=== PATIENT | male | born 1960 | race African-American/Black ===

== ENCOUNTER 2017-10-30 06:58 | Inpatient (IN) | payer OTHER ==
[2017-10-23 12:43] VITALS: BMI 34.9
[2017-10-30] MEDS ORDERED: TRANEXAMIC ACID 1000 MG/10 ML VIAL IVPUSH ONE (08:26)
[2017-10-30] MEDS ORDERED: VANCOMYCIN 1 GRAM (PRE-DOCKED) 1,000 MG/250 ML BAG IVPB ONE (08:45)
[2017-10-30] MEDS ORDERED: CEFAZOLIN 2 GM/D5W 2 GM/50 ML ML IVPB ONE (08:45)
[2017-10-30] MEDS ORDERED: oxyCODONE HCL 10 MG SUSTAINED ACTING TABLET PO ONE (09:26)
[2017-10-30] MEDS ORDERED: CELECOXIB 200 MG CAPSULE PO ONE (09:26)
[2017-10-30] MEDS ORDERED: MIDAZOLAM HCL 2 MG/2 ML SINGLE DOSE VIAL ONE ×2 (10:44→14:49)
[2017-10-30] MEDS ORDERED: BUPIVACAINE HCL/PF (5 MG/ML) 30 ML VIAL IJ ONE (10:44)
[2017-10-30] MEDS ORDERED: DEXAMETHASONE SOD PHOSPHATE/PF 10 MG/ML SDV ONE (10:44)
[2017-10-30] MEDS ORDERED: BUPIVACAINE HCL/PF 0.5% (5MG/ML) 10 ML VIAL ONE (10:51)
[2017-10-30] MEDS ORDERED: PROPOFOL 20 ML ONE ×9 (10:52→14:49)
[2017-10-30] MEDS ORDERED: BENZOIN/ALOE VERA/STORAX/TOLU 58 ML BOTTLE ONE (12:35)
[2017-10-30] MEDS ORDERED: ePHEDrine SULFATE 50 MG/1 ML AMPULE ONE (12:50)
[2017-10-30] MEDS ORDERED: HEPARIN NA (PORCINE) 5,000 UNITS/ML 1ML VIAL ONE (13:21)
[2017-10-30] MEDS ORDERED: ONDANSETRON 4 MG/2 ML VIAL ONE ×2 (16:03→17:05)
[2017-10-30] MEDS ORDERED: LIDOCAINE HCL/PF 2% SDV 5ML VIAL ONE (16:03)
[2017-10-30] MEDS ORDERED: ceFAZolin SODIUM 1 GM VIAL ONE (16:03)
[2017-10-30] MEDS ORDERED: TRANEXAMIC ACID 1000 MG/10 ML VIAL ONE ×2 (16:03→16:09)
[2017-10-30] MEDS ORDERED: DEXAMETHASONE SOD PHOSPHATE 4 MG/1 ML VIAL ONE (16:03)
[2017-10-30] MEDS ORDERED: VANCOMYCIN 1,000 MG VIAL (RESTRICTED TO ID ONLY) ONE (16:04)
--- NOTE | 2017-10-30 16:11 | OP ---
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 Cup - Tritanium, 62mm; 1 x acetabular screw. Poly - 28mm, neutral. Head - 28mm, std, Ceramic/Biolox. Stem - Not replaced Post-Operative Diagnosis: Same as Pre-op Surgeon: Matty Monk Telephone Clerks Supervisor: Bari Monk Anesthesiologist/MAINTENANCE CONSTRUCTION HELPER: Sp Hearn Anesthesia: Spinal Specimens Removed: Right cup, AYAAN head, soft tissue Estimated Blood Loss (mls): 700 Drains & Tubes with Location: 1 x deep HemoVac Blood Volume Replaced (mls): 250 (cell saver) Fluid Volume Replaced (mls): 2,000 Operative Report Dictated: Yes
--- NOTE | 2017-10-30 16:17 | PN ---
Progress Note (short form) - Note Progress Note: 57M s/p revision right total hip replacement POD #0. -Pain control. -DVT PPx: -Chemical: ASA 81mg PO BID x 6 weeks. -Mechanical: SADIE's, SCD's. -Incentive spirometry. -PT/OT/Rehab, OOB. -Hip abduction pillow. -Hip precautions. -f/u AM labs. -f/u drain output. -d/c Verma catheter at midnight. -Care per medical hospitalist team. -Will follow. -Discharge planning. Matty Monk MD (Orthopaedic Surgery).
[2017-10-30] MEDS ORDERED: ONDANSETRON 4 MG/2 ML VIAL IVPUSH PRN ×2 (16:18→17:08)
[2017-10-30] MEDS ORDERED: MAGNESIUM HYDROX 2400MG/30ML ORAL SUSPENSION 30 ML CUP PO PRN (16:18)
[2017-10-30] MEDS ORDERED: MAG HYDROX/AL HYDROX/SIMETH 30 ML UNIT-DOSE CUP PO PRN (16:18)
[2017-10-30] MEDS ORDERED: LACTATED RINGERS SOLUTION 1,000 ML IV SCH (16:30)
[2017-10-30] MEDS ORDERED: PROMETHAZINE HCL 25 MG/1 ML VIAL IVPB PRN (17:08)
[2017-10-30] MEDS ORDERED: HYDROmorphone HCL CARPU-JECT 2 MG/1 ML DISP.SYRIN IVPUSH PRN (17:13)
[2017-10-30] MEDS ORDERED: ACETAMINOPHEN 325 MG TABLET (FP) PO ONE (17:28)
[2017-10-30] MEDS ORDERED: HYDROmorphone HCL CARPU-JECT 2 MG/1 ML DISP.SYRIN ONE (17:44)
[2017-10-30] MEDS ORDERED: HYDROmorphone HCL CARPU-JECT 2 MG/1 ML DISP.SYRIN IVPUSH ONE ×2 (17:45→17:52)
[2017-10-30] MEDS: oxyCODONE HCL 5 MG TABLET PO PRN (19:58)
[2017-10-30] MEDS: CEFAZOLIN 2 GM/D5W 2 GM/50 ML ML IVPB SCH (19:59)
[2017-10-30] MEDS: GABAPENTIN 300 MG CAPSULE (FP) PO SCH (21:21)
[2017-10-30] MEDS: SENNOSIDES/DOCUSATE COMBO (SENNA PLUS) TABLET (UD) PO SCH (21:21)
[2017-10-30] MEDS: oxyCODONE HCL 10 MG SUSTAINED ACTING TABLET PO SCH (21:21)
[2017-10-30] MEDS: ASPIRIN COATED 81 MG TABLET.EC PO SCH (21:38)
[2017-10-30] MEDS ORDERED: INSULIN (NOVOLOG) ASPART 100 UNITS/ML 10ML VIAL ONE (22:31)
[2017-10-30] MEDS: INSULIN SLIDING SCALE (NOVOLOG) 1 VIAL SQ SCH (22:33)
[2017-10-30] MEDS: ACETAMINOPHEN 325 MG TABLET (FP) PO SCH (23:30)
[2017-10-31] MEDS: CEFAZOLIN 2 GM/D5W 2 GM/50 ML ML IVPB SCH (04:06)
[2017-10-31] MEDS: ACETAMINOPHEN 325 MG TABLET (FP) PO SCH ×4 (05:44→23:42)
[2017-10-31] MEDS: oxyCODONE HCL 5 MG TABLET PO PRN ×3 (06:02→20:13)
[2017-10-31] MEDS ORDERED: INSULIN (NOVOLOG) ASPART 100 UNITS/ML 10ML VIAL ONE (06:16)
[2017-10-31] MEDS: INSULIN SLIDING SCALE (NOVOLOG) 1 VIAL SQ SCH ×2 (06:26→22:49)
[2017-10-31 08:29] LABS: HEMATOCRIT 39.1 % (35.4-49); HEMOGLOBIN 13.5 GM/dl (11.7-16.9); MCH 30.9 pg (25.7-33.7); MCHC 34.5 g/dl (32.0-35.9); MEAN CELL VOLUME 89.6 fl (80-96); PLATELET COUNT 285 K/MM3 (134-434); RBC 4.36 M/mm3 (4.00-5.60); WHITE BLOOD COUNT 17.8 K/mm3 (4.0-10.8)
[2017-10-31 09:08] LABS: ANION GAP 9 (8-16); BLOOD UREA NITROGEN 17 mg/dl (7-18); CALCIUM 9.1 mg/dl (8.4-10.2); CHLORIDE 101 mmol/L (98-107); CO2 27 mmol/L (22-28); CREATININE 0.8 mg/dl (0.6-1.3); GLUCOSE,RANDOM 185 mg/dl (74-106); POTASSIUM 4.7 mmol/L (3.5-5.1); SODIUM 137 mmol/L (136-145)
[2017-10-31] MEDS: LISINOPRIL 20 MG TABLET (FP) PO SCH (09:19)
[2017-10-31] MEDS: ASPIRIN COATED 81 MG TABLET.EC PO SCH ×2 (09:19→22:14)
[2017-10-31] MEDS: PANTOPRAZOLE 40 MG TABLET (FP) PO SCH (09:20)
[2017-10-31] MEDS: SENNOSIDES/DOCUSATE COMBO (SENNA PLUS) TABLET (UD) PO SCH ×2 (09:20→22:14)
[2017-10-31] MEDS: oxyCODONE HCL 10 MG SUSTAINED ACTING TABLET PO SCH ×2 (09:20→22:13)
[2017-10-31] MEDS: GABAPENTIN 300 MG CAPSULE (FP) PO SCH ×2 (09:21→22:13)
[2017-10-31] MEDS ORDERED: PATIENT'S OWN MEDICATION (NON-FORMULARY) (Amlodipine Besylate/Benazepril [Lotrel 5-40 Mg C PO SCH (10:00)
[2017-10-31] MEDS ORDERED: LISINOPRIL 20 MG TABLET (FP) PO SCH (10:00)
[2017-10-31] MEDS ORDERED: METHADONE HCL 10 MG TABLET PO SCH (10:00)
[2017-10-31] MEDS: amLODIPine BESYLATE 5 MG TABLET (FP) PO SCH (10:10)
--- NOTE | 2017-10-31 10:23 | PN ---
Progress Note (short form) - Note Progress Note: Anesthesiology Post-op/Pain Service 57 y.o. man POD#1 s/p revision of right THR with peripheral nerve blocks and spinal anesthesia. Pt. c/o increased pain, present at rest and with activity; he is participating in PT. H estates that the pain is slightly better with pain medicine. He currently has both scheduled as well as PRN dosing available for oxycodone. No residual paresthesia. VSS. 57 y.o. man with post-op pain but otherwise stable post-operative course s/p revision of right THR. D/W RN to resume the pt's home maintenance methadone dose in addition to current analgesic regimen. Will reevaluate as needed.
--- NOTE | 2017-10-31 12:25 | OP ---
DATE OF OPERATION: 10/30/2017 SURGEON: Matty Monk MD ASSISTANTS: Bari Monk MD, and RITCHIE Ramsay PREOPERATIVE DIAGNOSIS: Right failed total hip arthroplasty. POSTOPERATIVE DIAGNOSIS: Right failed total hip arthroplasty. OPERATION PERFORMED: 1. Extended trochanteric osteotomy. 2. Debridement of acetabulum and soft tissue around the entire hip acetabular revision. 3. Revision right total hip arthroplasty. 4. Reduction and internal fixation of trochanteric osteotomy. 5. Complex wound closure, 30 cm. ANESTHESIA: Spinal anesthesia with conscious sedation. ANTIBIOTICS GIVEN: Kefzol 2 g and vancomycin 1 g preoperatively; Kefzol 1 g at the time of seating of the acetabular component; Kefzol 1 g given at the time of seating of the femoral component. DRAINS: An 1/8-inch Hemovac x2. ESTIMATED BLOOD LOSS: 800 mL; approximately 300 mL given back with CellSaver. DESCRIPTION OF PROCEDURE: The patient was correctly identified and brought to the operating room. The right lower extremity was prepped free and draped in the routine manner with Betadine scrub solution, wiped off with alcohol, and DuraPrep applied. Through the old original incision, this was extended proximally and distally. The subcutaneous tissues and the fascia were opened. A Charnley retractor was placed in the subfascial plane once all the fascia was released utilizing sharp dissection. The Grier-Blandon window was identified, extended onto the trochanteric ridge. A transverse incision was made in the vastus lateralis and then down the linea aspera for a 3-inch subtrochanteric osteotomy. This was performed with an oscillating saw along the femur posteriorly and anteriorly and transition of the lateral cortex. A Gigli saw was utilized. This was passed around the greater trochanter from the top of the greater trochanter to up bone bed of the lateral femur. Once this had been performed, the hip abductor mechanism with the bone was lifted and flapped proximally with the neurovascular bundle of the gluteus medius. Two Charnley pins were placed in the superior aspect of the acetabulum to hold the muscle and trochanter out of harm's way. The superolateral aspect of the capsule was resected. This was sent to the laboratory for histopathological evaluation. No signs of any infection noted. The entire periacetabular capsular structures were resected. The implant was noted. This was a 36-mm head. The stem itself was well seated and solidly seated and the version of the stem was normal, that is 5 degrees anteversion. The cup, however, was placed in marked anteversion, almost 30 to 40 degrees of anteversion, and the only explanation for this gentleman's pain was that the anterior pain was because of perpetual levering as the back of the trunnion of the stem impinged on the back of the cup and attempting to sublux the femoral head anteriorly. Retraction was with anterior, posterior, inferior and superior retractors. This proved to be extremely difficult because of this man's enormous size. The cup was solidly seated and with great difficulty, using gooseneck curved gouges the cup was removed. The bone itself remained a contained defect. Reaming was to size 59, and a new cup inserted, closed, and about 10 degrees anteverted only. A trialing of the cup, once inserted and solid press fit achieved, that was with a 60-mm Nam cup. One screw was utilized to help hold this component solidly in position. Solid press fixation and solid screw fixation achieved. Polyethylene liner for a 28-mm cup was inserted. Because the version was correct of the stem, it was elected to leave this well alone. A 28-mm head was applied to the trunnion and reduced it into position, giving completely stable fixation with flexion, adduction, internal rotation as well as extension, external rotation. The limb length appeared equal and the axillary alignment on the table in the supine position was normal. Once this had been performed, the tissues were thoroughly lavaged. The Charnley pins were removed, and the trochanter anatomically reduced, held with 3 cerclage cables, with solid fixation being achieved. The hip was again put through a range of motion and found not to have any complications, all components solidly seated. The closure was as follows: Gluteus medius to vastus lateralis 1 Vicryl, fascia 1 Vicryl interrupted, subQ 1 Vicryl deep and 2-0 Vicryl superficial, and skin jamaal for the entire wound. Drainage with 1/8-inch Hemovac subfascially and an 1/8-inch Hemovac subcutaneously. A triangular abduction pillow applied after the procedure and appropriate dressing applied. Leg lengths on the table were equal. The operation was extremely difficult but went well. Blood loss was dealt with Cell Saver and should not pose a problem. PLAN: Partial to full weight-bearing as tolerated. Use of the hip abduction pillow for 6 weeks. MD VICKY Dominguez/[id number]
--- NOTE | 2017-10-31 12:42 | CONSULT ---
Consultation: REQUESTING PROVIDER: Dr Monk CONSULT REQUEST: We have been asked to medically evaluate this patient for medical management . HISTORY OF PRESENT ILLNESS: Patient is a 57 y/o male with a past medical history of PUD, OA, depression, NIDDM, HTN, HLD, opiod dependence (methadone). Patient is s/p right total hip replacement w/revision, 10/30/17, Dr Monk spinal anesthesia. REVIEW OF SYSTEMS: CONSTITUTIONAL: Absent: fever, chills, diaphoresis, generalized weakness, malaise, loss of appetite, weight change HEENT: Absent: rhinorrhea, nasal congestion, throat pain, throat swelling, difficulty swallowing, mouth swelling, ear pain, eye pain, visual changes CARDIOVASCULAR: Absent: chest pain, syncope, palpitations, irregular heart rate, lightheadedness , peripheral edema RESPIRATORY: Absent: cough, shortness of breath, dyspnea with exertion, orthopnea, wheezing, stridor, hemoptysis GASTROINTESTINAL: Absent: abdominal pain, abdominal distension, nausea, vomiting, diarrhea, constipation, melena, hematochezia GENITOURINARY: Absent: dysuria, frequency, urgency, hesitancy, hematuria, flank pain, genital pain MUSCULOSKELETAL: present: right hip pain Absent: myalgia, arthralgia, joint swelling, back pain, neck pain SKIN: Absent: rash, itching, pallor HEMATOLOGIC/IMMUNOLOGIC: Absent: easy bleeding, easy bruising, lymphadenopathy, frequent infections ENDOCRINE: Absent: unexplained weight gain, unexplained weight loss, heat intolerance, cold intolerance NEUROLOGIC: Absent: headache, focal weakness or paresthesias, dizziness, unsteady gait, seizure, mental status changes, bladder or bowel incontinence PSYCHIATRIC: Absent: anxiety, depression, suicidal or homicidal ideation, hallucinations. PHYSICAL EXAMINATION Vital Signs - 24 hr 10/30/17 10/30/17 10/30/17 17:01 17:05 17:10 Temperature 97.6 F Pulse Rate 81 82 80 Respiratory 18 18 18 Rate Blood Pressure 148/72 130/92 115/71 O2 Sat by Pulse 98 100 97 Oximetry (%) 10/30/17 10/30/17 10/30/17 17:15 17:30 17:45 Temperature Pulse Rate 79 81 75 Respiratory 18 18 18 Rate Blood Pressure 122/73 134/78 123/74 O2 Sat by Pulse 99 99 98 Oximetry (%) 10/30/17 10/30/1718 17:58 17:59 18:31 Temperature 98 F Pulse Rate 83 83 81 Respiratory 18 18 18 Rate Blood Pressure 120/81 120/81 136/78 O2 Sat by Pulse 100 97 Oximetry (%) 10/30/17 10/30/17 10/31/17 20:18 21:00 05:28 Temperature 97.8 F 98.4 F Pulse Rate 83 78 Respiratory 18 20 Rate Blood Pressure 136/70 130/69 O2 Sat by Pulse 98 98 Oximetry (%) GENERAL: Awake, alert, and fully oriented, in no acute distress. HEAD: Normal with no signs of trauma. EYES: Pupils equal, round and reactive to light, extraocular movements intact, sclera anicteric, conjunctiva clear. No lid lag. EARS, NOSE, THROAT: Ears normal, nares patent, oropharynx clear without exudates. Moist mucous membranes. NECK: Normal range of motion, supple without lymphadenopathy, JVD, or masses. LUNGS: Breath sounds equal, clear to auscultation bilaterally. No wheezes, and no crackles. No accessory muscle use. HEART: Regular rate and rhythm, normal S1 and S2 without murmur, rub or gallop. ABDOMEN: Soft, nontender, not distended, normoactive bowel sounds, no guarding, no rebound, no masses. No hepatomegaly or splenomegaly. MUSCULOSKELETAL: Normal range of motion at all joints. No bony deformities or tenderness. No CVA tenderness. UPPER EXTREMITIES: 2+ pulses, warm, well-perfused. No cyanosis. No clubbing. Cap refill <2 seconds. No peripheral edema. LOWER EXTREMITIES: 2+ pulses, warm, well-perfused. No calf tenderness. No peripheral edema. RIGHT LOWER EXTREMITY: dressing CDI, hemovac scant sang drainage NEUROLOGICAL: Cranial nerves II-XII intact. Normal speech. Normal gait. PSYCHIATRIC: Cooperative. Good eye contact. Appropriate mood and affect. SKIN: Warm, dry, normal turgor, no rashes or lesions noted. Laboratory Results - last 24 hr 10/30/17 10/30/17 10/30/17 11:04 11:04 17:11 WBC RBC Hgb Hct MCV MCH MCHC RDW Plt Count MPV Sodium Potassium Chloride Carbon Dioxide Anion Gap BUN Creatinine POC Glucometer 159 Random Glucose Calcium Blood Type O POSITIVE O POSITIVE Antibody Screen Negative 10/30/17 10/31/1718 21:19 06:07 08:24 WBC 17.8 H RBC 4.36 Hgb 13.5 Hct 39.1 MCV 89.6 MCH 30.9 MCHC 34.5 RDW 12.0 Plt Count 285 MPV 9.0 Sodium Potassium Chloride Carbon Dioxide Anion Gap BUN Creatinine POC Glucometer 315 195 Random Glucose Calcium Blood Type Antibody Screen 10/31/17 08:27 WBC RBC Hgb Hct MCV MCH MCHC RDW Plt Count MPV Sodium 137 Potassium 4.7 Chloride 101 Carbon Dioxide 27 Anion Gap 9 BUN 17 Creatinine 0.8 POC Glucometer Random Glucose 185 H Calcium 9.1 Blood Type Antibody Screen Active Medications Generic Name Dose Route Start Last Admin Trade Name Freq PRN Reason Stop Dose Admin Acetaminophen 650 mg 10/30/17 17:15 10/31/17 05:44 Tylenol - PO 11/02/17 17:14 650 mg Q6H CASIMIRO Administration Al Hydroxide/Mg Hydroxide 30 ml 10/30/17 16:18 Mylanta Oral Suspension - PO Q4H PRN DYSPEPSIA Amlodipine Besylate 5 mg 10/31/17 10:00 Norvasc - PO DAILY CASIMIRO Aspirin 81 mg 10/30/17 22:00 10/31/17 09:19 Ecotrin - PO 81 mg BID CASIMIRO Administration Gabapentin 300 mg 10/30/17 22:00 10/31/17 09:21 Neurontin - PO 300 mg BID CASIMIRO Administration Insulin Aspart 1 vial 10/30/17 22:00 10/30/17 22:33 Novolog Vial Sliding Scale - SQ 6 units HS CASIMIRO Administration Protocol Insulin Aspart 1 vial 10/31/17 07:00 10/31/17 06:26 Novolog Vial Sliding Scale - SQ 2 units TIDAC CASIMIRO Administration Protocol Lisinopril 40 mg 10/31/17 10:00 10/31/17 09:19 Prinivil PO 40 mg DAILY CASIMIRO Administration Magnesium Hydroxide 30 ml 10/30/17 16:18 Milk Of Magnesia - PO PRN PRN CONSTIPATION Methadone HCl 40 mg 10/31/17 10:00 Dolophine - PO DAILY CASIMIRO Ondansetron HCl 4 mg 10/30/17 16:18 10/30/17 17:07 Zofran Injection IVPUSH 4 mg Q6H PRN Administration NAUSEA Ondansetron HCl 4 mg 10/30/17 17:08 Zofran Injection IVPUSH Q6H PRN NAUSEA AND/OR VOMITING Oxycodone HCl 5 mg 10/30/17 17:14 Roxicodone - PO Q3H PRN PAIN LEVEL 1-5 Oxycodone HCl 10 mg 10/30/17 17:14 10/31/17 08:43 Roxicodone - PO 10 mg Q3H PRN Administration PAIN LEVEL 6-10 Oxycodone HCl 10 mg 10/30/17 22:00 10/31/17 09:20 Oxycontin - PO 11/02/17 17:09 10 mg BID CASIMIRO Administration Pantoprazole Sodium 40 mg 10/31/17 10:00 10/31/17 09:20 Protonix - PO 40 mg DAILY CASIMIRO Administration Promethazine HCl 12.5 mg 10/30/17 17:08 Phenergan Injection - IVPB Q6H PRN NAUSEA-FOR RESCUE AFTER 15 MIN Senna/Docusate Sodium 2 tablet 10/30/17 22:00 10/31/17 09:20 Pericolace - PO 2 tablet BID CASIMIRO Administration ASSESSMENT/PLAN: 1) MS s/p right total hip replacement, POD #1 - physical therpy as per Dr Monk - monitor hgb, 13.5, leukocytosis noted, likely reactive pt is afebrile - continue asa for ppx - incentive spriometer - prn pain medication 2) cardiovascular htn - continue lisinopril and norvasc, ,b/p at goal 3) Psych opiod dependence - continue home dose methadone, in consultation with anesthesia, continue oxycodone and methadone Dispo: We will continue to follow the patient. Thank you for this consultative opportunity.
[2017-10-31] MEDS ORDERED: oxyCODONE HCL 5 MG TABLET ONE (20:11)
[2017-10-31] MEDS ORDERED: oxyCODONE HCL 10 MG SUSTAINED ACTING TABLET ONE (22:10)
[2017-11-01] MEDS: ACETAMINOPHEN 325 MG TABLET (FP) PO SCH (05:39)
[2017-11-01] MEDS: INSULIN SLIDING SCALE (NOVOLOG) 1 VIAL SQ SCH ×2 (06:08→13:29)
--- NOTE | 2017-11-01 07:19 | PN ---
Progress Note (short form) - Note Progress Note: POD #2 s/p Revision right total hip replacement
[2017-11-01] MEDS: oxyCODONE HCL 5 MG TABLET PO PRN ×2 (07:40→09:00)
[2017-11-01 08:07] LABS: HEMATOCRIT 34.5 % (35.4-49); MCH 30.9 pg (25.7-33.7); MCHC 34.7 g/dl (32.0-35.9); MEAN CELL VOLUME 88.9 fl (80-96); MEAN PLT VOLUME 9.2 fl (7.5-11.1); PLATELET COUNT 242 K/MM3 (134-434); RBC 3.88 M/mm3 (4.00-5.60); RDW 12.2 % (11.9-15.9); WHITE BLOOD COUNT 16.8 K/mm3 (4.0-10.8)
--- NOTE | 2017-11-01 08:36 | DS ---
Physical Exam: SUBJECTIVE: Patient seen and examined OBJECTIVE: Vital Signs Temperature 97.4 F L 11/01/17 06:00 Pulse Rate 84 11/01/17 06:00 Respiratory Rate 20 11/01/17 06:00 Blood Pressure 103/52 11/01/17 06:00 O2 Sat by Pulse Oximetry (%) 95 11/01/17 06:00 PHYSICAL EXAM GENERAL: The patient is awake, alert, and fully oriented, in no acute distress. HEAD: Normal with no signs of trauma. EYES: PERRL, extraocular movements intact, sclera anicteric, conjunctiva clear. ENT: Ears normal, nares patent, oropharynx clear without exudates, moist mucous membranes. NECK: Trachea midline, full range of motion, supple. LUNGS: Breath sounds equal, clear to auscultation bilaterally, no wheezes, no crackles, no accessory muscle use. HEART: Regular rate and rhythm, S1, S2 without murmur, rub or gallop. ABDOMEN: Soft, nontender, nondistended, normoactive bowel sounds, no guarding, no rebound, no hepatosplenomegaly, no masses. EXTREMITIES: 2+ pulses, warm, well-perfused, no edema. NEUROLOGICAL: Cranial nerves II through XII grossly intact. Normal speech, gait not observed. PSYCH: Normal mood, normal affect. SKIN: Warm, dry, normal turgor, no rashes or lesions noted. LABS CBC,CMP WBC 16.8 K/mm3 (4.0-10.8) H 11/01/17 07:30 RBC 3.88 M/mm3 (4.00-5.60) L 11/01/17 07:30 Hgb 12.0 GM/dl (11.7-16.9) D 11/01/17 07:30 Hct 34.5 % (35.4-49) L 11/01/17 07:30 MCV 88.9 fl (80-96) 11/01/17 07:30 MCH 30.9 pg (25.7-33.7) 11/01/17 07:30 MCHC 34.7 g/dl (32.0-35.9) 11/01/17 07:30 RDW 12.2 % (11.9-15.9) 11/01/17 07:30 Plt Count 242 K/MM3 (134-434) 11/01/17 07:30 MPV 9.2 fl (7.5-11.1) 11/01/17 07:30 Sodium 137 mmol/L (136-145) 10/31/17 08:27 Potassium 4.7 mmol/L (3.5-5.1) 10/31/17 08:27 Chloride 101 mmol/L (98-107) 10/31/17 08:27 Carbon Dioxide 27 mmol/L (22-28) 10/31/17 08:27 Anion Gap 9 (8-16) 10/31/17 08:27 BUN 17 mg/dl (7-18) 10/31/17 08:27 Creatinine 0.8 mg/dl (0.6-1.3) 10/31/17 08:27 POC Glucometer 154 UNITS (80-120) 11/01/17 06:02 Random Glucose 185 mg/dl (74-106) H 10/31/17 08:27 Calcium 9.1 mg/dl (8.4-10.2) 10/31/17 08:27 HOSPITAL COURSE: Date of Admission:10/30/17 Date of Discharge: 11/01/17 The patient was admitted to the Med-Surg Unit after an elective repair of their (problem). Now, s/p ( procedure ). The day of surgery, the patient ambulated the hallways with assistance. Narcotic and non-narcotic pain management control was achieved with an oral and IV approach. POD #1, the surgical drain was removed fully intact and without incident. An xray was obtained and confirmed hardware placement at (level of ), no fractures or dislocations. Anna-operative IV ABX were administered. DVT prophylaxis was achieved with SCDs and early ambulation. The patient ambulated with Physical Therapy and no services were recommended upon discharge. Narcotic scripts and or muscle relaxants were checked with N[facility] FOIL SPOOLER prior to escibe. The discharge instructions and an oral pain management plan were reviewed with the patient. All questions answered. Above plan discussed with Dr. Gonzales and agreed. The patient was admitted to the Med-Surg Unit after an elective repair of left hip DJD. Now, s/p left total hip replacement. The day of surgery, the patient ambulated the hallways with assistance. Narcotic and non-narcotic pain management control was achieved with an oral and IV approach. Anna-operative IV ABX were administered. DVT prophylaxis was achieved with SCDs and early ambulation. The discharge instructions and an oral pain management plan were reviewed with the patient. All questions answered. Above plan discussed with Dr. Monk and agreed. Minutes to complete discharge: 25
[2017-11-01] MEDS ORDERED: METHADONE HCL 10 MG TABLET (FOR DETOX USE ONLY) ONE (10:14)
[2017-11-01] MEDS: oxyCODONE HCL 10 MG SUSTAINED ACTING TABLET PO SCH (10:16)
[2017-11-01] MEDS: GABAPENTIN 300 MG CAPSULE (FP) PO SCH (10:17)
[2017-11-01] MEDS: ASPIRIN COATED 81 MG TABLET.EC PO SCH (10:17)
[2017-11-01] MEDS: PANTOPRAZOLE 40 MG TABLET (FP) PO SCH (10:18)
[2017-11-01] MEDS: SENNOSIDES/DOCUSATE COMBO (SENNA PLUS) TABLET (UD) PO SCH (10:18)
[2017-11-01] MEDS: LISINOPRIL 20 MG TABLET (FP) PO SCH (10:18)
[2017-11-01] MEDS: amLODIPine BESYLATE 5 MG TABLET (FP) PO SCH (10:18)
[2017-11-01 14:06] VITALS: BP 96/46; PULSE 88; TEMP 98.4
--- NOTE | 2017-11-05 17:36 | PATH ---
Surgical Pathology Report Patient Name: PARESH HENRIQUEZ Med. Rec. #: [id number] /Age/Gender: 1960 (Age: 57) / M Account: [id number] Location: [facility] MED-SURG Taken: 10/31/2017 Received: 10/31/2017 Reported: 11/05/2017 Physicians: Matty Monk M.D. Specimen(s) Received A: RIGHT HIP CAPSULE B: RIGHT HIP IMPLANT Clinical History Right total hip replacement, failed implant Final Diagnosis A. RIGHT HIP CAPSULE, EXCISION: FIBROADIPOSE TISSUE WITH FOCAL HISTIOCYTIC REACTION. SCANTY ADJACENT BONE WITH HEMATOPOIETIC MARROW. B. RIGHT HIP IMPLANT, REMOVAL: PLASTIC AND METALLIC HARWARE (FIELD ACCOUNT DIRECTOR), GROSS EXAMINATION ONLY. Electronically Signed Casey Verdugo M.D. Gross Description A. Received in formalin labeled "right hip capsule," is a 4.6 x 3.5 x 3.1 cm portion of firm, dense, focally calcified fibrous tissue. Veneer Puller sections are submitted in one cassette, following decalcification. B. Received fresh labeled "right hip implant," are 3 portions of white plastic and metallic hardware ranging from 3.0-5.5 cm in greatest dimension, consistent with a hip explant. No soft tissue is present. No sections are submitted, gross only. 11/01/201711/01/2017
== END 2017-11-01 15:30 | disposition home health service (06) | DRG 301 ==
LOC: FM/S 06:58
PROVIDERS: ADMIT Orthopaedic Surgery Orthopaedic Surgery of the Spine; ATTEND Orthopaedic Surgery Orthopaedic Surgery of the Spine
PROC: 0SP90JZ Removal of Synthetic Substitute from Right Hip Joint, Open Approach (ICD-10-PCS; 2017-10-30)
PROC: 0SR90JA Replacement of Right Hip Joint with Synthetic Substitute, Uncemented, Open Approach (ICD-10-PCS; principal; 2017-10-30 13:42)
DX: T84.030A Mechanical loosening of internal right hip prosthetic joint, initial encounter (principal); Y83.9 Surgical procedure, unspecified as the cause of abnormal reaction of the patient, or of later complication, without mention of misadventure at the time of the procedure; E78.5 Hyperlipidemia, unspecified; Z79.891 Long term (current) use of opiate analgesic; F11.20 Opioid dependence, uncomplicated; E11.9 Type 2 diabetes mellitus without complications; F32.9 Major depressive disorder, single episode, unspecified; D72.829 Elevated white blood cell count, unspecified; I10 Essential (primary) hypertension
CPT/HCPCS: 36415; 73502-TC-RT; 80048; 82962; 85027; 86850; 86900; 86901; 88300-TC; 88304-TC; 94760; 97116-GP; 97162-GP; J1644